=== PATIENT | male | born 1965 | race Caucasian/White ===

== ENCOUNTER → 2017-10-24 | Outpatient (CLI) | payer OTHER ==
[~2017-10-24] MED LIST: ALBU8.5H8 INH; FLUT12HF2 INH; FLUT1DIS3 INH; FLUT9.9S NS; LORA1TAB46 PO; PANT40TA3 PO; PANT40TA5 PO; SUMA100T3 PO; TOPI25CA5 PO; imitrex PO
== END ==
LOC: STAR 15:07
PROVIDERS: ATTEND Surgery
DX: Z02.9 Encounter for administrative examinations, unspecified (principal)

== ENCOUNTER 2017-11-04 11:04 | Day surgery (SDC) | payer OTHER ==
[~2017-11-04] VITALS: Ht 170.2 cm; Wt 78.8 kg
[2017-11-04] MEDS ORDERED: LACTATED RINGERS 1,000 ML IV SCH (11:36)
[2017-11-04 11:55] VITALS: BP 108/74
[2017-11-04] MEDS ORDERED: EPINEPHRINE 1 MG/ML, 1ML ONE (12:20)
[2017-11-04] MEDS ORDERED: BUPIVACAINE/PF 0.5% ONE (12:20)
[2017-11-04] MEDS ORDERED: FENTANYL PF 250 MCG/5ML ONE (12:30)
[2017-11-04] MEDS ORDERED: MIDAZOLAM 1 MG/ML, 2ML ONE (12:30)
[2017-11-04] MEDS ORDERED: PROPOFOL 10 MG/ML, 20ML ONE (12:32)
[2017-11-04] MEDS ORDERED: ROCURONIUM 10 MG/ML,10ML ONE ×2 (12:33)
[2017-11-04] MEDS ORDERED: DEXAMETHASONE 4 MG/ML, 1ML ONE (12:33)
[2017-11-04] MEDS ORDERED: ONDANSETRON 2MG/ML, 2ML ONE (12:33)
[2017-11-04] MEDS ORDERED: CEFAZOLIN 1,000 MG ONE ×2 (12:33→13:19)
[2017-11-04] MEDS ORDERED: SUCCINYLCHOLINE 20 MG/ML, 10ML ONE (12:33)
[2017-11-04] MEDS ORDERED: KETOROLAC 30 MG/1 ML ONE (13:19)
[2017-11-04] MEDS ORDERED: OMNIPAQUE 350 MG/ML, 50 ML BOTTLE ONE (14:11)
[2017-11-04] MEDS ORDERED: ACETAMINOPHEN 650 MG/20.3 ML UDC ONE (14:43)
[2017-11-04] MEDS ORDERED: ACETAMINOPHEN 325 MG TABLET ONE (14:43)
[2017-11-04] MEDS ORDERED: OXYcodone 5 MG/5 ML ORAL.SOL UDC ONE (14:43)
[2017-11-04] MEDS ORDERED: FENTANYL PF 100 MCG/2ML ONE (14:56)
[2017-11-04] MEDS ORDERED: HYDROmorphone 1 MG/ML, 1ML IV PRN (15:00)
[2017-11-04] MEDS ORDERED: MEPERIDINE/PF 50 MG/ML ONE (15:00)
[2017-11-04] MEDS ORDERED: PROMETHAZINE 25 MG/ML, 1ML IV PRN (15:00)
[2017-11-04] MEDS ORDERED: ONDANSETRON 2MG/ML, 2ML IVPush PRN (15:00)
[2017-11-04] MEDS ORDERED: ACETAMINOPHEN 325 MG TABLET PO PRN (15:00)
[2017-11-04] MEDS ORDERED: hydrALAzine 20 MG/ML, 1ML IV PRN (15:00)
[2017-11-04] MEDS ORDERED: MIDAZOLAM 1 MG/ML, 2ML IV PRN (15:00)
[2017-11-04] MEDS ORDERED: MEPERIDINE/PF 25MG/0.5ML IVPush PRN (15:00)
[2017-11-04] MEDS ORDERED: ALBUTEROL SULFATE 2.5 MG/3 ML NPPB PRN (15:00)
[2017-11-04] MEDS ORDERED: FENTANYL PF 100 MCG/2ML IV PRN (15:00)
[2017-11-04] MEDS ORDERED: OXYcodone 5 MG/5 ML ORAL.SOL UDC PO PRN (15:00)
[2017-11-04] MEDS ORDERED: LABETALOL 5MG/ML, 20ML IV PRN (15:00)
== END 2017-11-04 17:55 ==
LOC: OUT 11:04
PROVIDERS: ATTEND Surgery
DX: K80.10 Calculus of gallbladder with chronic cholecystitis without obstruction (principal); K85.90 Acute pancreatitis without necrosis or infection, unspecified; J45.909 Unspecified asthma, uncomplicated
CPT/HCPCS: 47563; 74300; 88304; J0171; J0330; J0690; J1100; J1885; J2175; J2250; J2405; J2704; J3010; J3490; J7120; Q9967